=== PATIENT | male | born 1980 | race Caucasian/White ===

== ENCOUNTER 2018-06-21 13:42 | Emergency (ER) | payer OTHER ==
[~2018-06-21] VITALS: Ht 180.3 cm; Wt 100.2 kg
[2018-06-21] MEDS ORDERED: FLEXERIL PO (16:30)
[2018-06-21] MEDS ORDERED: NAPROSYN500 MG PO (16:30)
[2018-06-21 16:35] VITALS: BP 140/96
== END 2018-06-21 16:36 | disposition home or self-care (01) ==
LOC: M.ERS 13:42
DX: S39.012A Strain of muscle, fascia and tendon of lower back, initial encounter (principal); M54.2 Cervicalgia; F17.210 Nicotine dependence, cigarettes, uncomplicated; Z90.49 Acquired absence of other specified parts of digestive tract; V89.2XXA Person injured in unspecified motor-vehicle accident, traffic, initial encounter; Y93.89 Activity, other specified; Y92.89 Other specified places as the place of occurrence of the external cause; Y99.8 Other external cause status